=== PATIENT | male | born 1990 | race Caucasian/White ===

== ENCOUNTER 2021-04-03 19:53 | Emergency (ER) | payer BC, OTHER ==
[~2021-04-03] VITALS: Ht 162.6 cm; Wt 88.5 kg
[2021-04-03 19:54] VITALS: BP 132/94
== END 2021-04-03 22:13 | disposition left against medical advice (07) ==
LOC: ER 19:59
DX: R07.89 Other chest pain (principal); F41.9 Anxiety disorder, unspecified
CPT/HCPCS: 71045